=== PATIENT | female | born 1970 | race Caucasian/White ===

== ENCOUNTER 2016-10-30 09:32 | Emergency (ER) | payer OTHER ==
[2016-10-30 09:54] LABS: % IMMATURE GRANULYOCYTES 0.2 % (0.0-1.1); ABSOLUTE IMMATURE GRANULOCYTES 0.01 10^3/uL (0.00-0.10); ADD DIFF? NO; ADD MORPH? NO; ADD SCAN? NO; ATYPICAL LYMPHOCYTE FLAG 40 (0-99); FRAGMENT RBC FLAG 0 (0-99); HEMATOCRIT 44.5 % (38.0-47.0); HEMOGLOBIN 14.6 g/dL (12.6-16.3); LEFT SHIFT FLG 0 (0-99); LIPEMIA HEMOLYSIS FLAG 80 (0-99); MEAN CELL HEMOGLOBIN 29.5 pg (27.9-34.1); MEAN CELL HEMOGLOBIN CONCENTR. 32.8 g/dL (32.4-36.7); MEAN CELL VOLUME 89.9 fL (81.5-99.8); MEAN PLATELET VOLUME 9.8 fL (8.7-11.7); PLATELET CLUMPS FLAG 0 (0-99); PLATELET COUNT 282 10^3/uL (150-400); RED BLOOD CELL COUNT 4.95 10^6/uL (4.18-5.33); RED CELL DISTRIBUTION WIDTH 13.2 % (11.5-15.2)
[2016-10-30 10:17] LABS: ANION GAP 25 mEq/L (8-16); CALCIUM 10.1 mg/dL (8.5-10.4); CARBON DIOXIDE 16 mEq/l (22-31); CHLORIDE 101 mEq/L (97-110); CREATININE 0.7 mg/dL (0.6-1.0); GLOMERULAR FILTRATION RATE > 60; GLUCOSE 118 mg/dL (70-100); POTASSIUM 3.9 mEq/L (3.5-5.2); SODIUM 142 mEq/L (134-144)
[2016-10-30 11:17] VITALS: RESP 14
--- NOTE | 2016-10-30 12:05 | EDPHY ---
H & P Stated Complaint: Seizure Time Seen by Provider: 10/30/16 09:33 HPI/ROS: CHIEF COMPLAINT: Seizure HISTORY OF PRESENT ILLNESS: This is a 46-year-old female with a history of seizure disorder, both trauma caban mal. She reportedly experienced a tonic- clonic seizure while at work today. 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 She reports experiencing an aura prior to the seizure. She has no further recollection. She denies any injury. She would normally not present to the emergency department after seizure but did so because she was feeling diffusely weak and because her coworkers and/or employer apparently encouraged her to do so. She was transported by ambulance. She is compliant with her seizure medications. No recent change in sleep habits or nutrition. She does not use alcohol or drugs. REVIEW OF SYSTEMS: A ten point review of systems was performed and is negative with the exception of the items mentioned in the HPI. 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 Hard of hearing - Social History Smoking Status: Never smoked Alcohol Use: None Drug Use: None Additional Social History: She is employed in a dining [employer]. - Physical Exam Exam: General Appearance: Alert. Vital signs reviewed. Eyes: Pupils equal and round, no conjunctival injection, no discharge. Anicteric. ENT, Mouth: Mucous membranes are moist, no oropharyngeal erythema or edema. No intraoral injury. Neck: No lymphadenopathy, supple. Respiratory: Lungs are clear to auscultation; no wheezes, rales, or rhonchi. Cardiovascular: Regular rate and rhythm; no murmur, rub, or gallop. Gastrointestinal: Abdomen is soft and nontender, no masses or organomegaly, bowel sounds normal. Skin: Warm and dry, no rashes on exposed skin, normal color. Back: Nontender to palpation over the thoracolumbar spine. No CVAT. Extremities: No lower extremity edema, no calf tenderness or swelling. Neurological: Alert and oriented. Moving all four extremities easily and equally. Cranial nerves II through XII are examined and are intact (visual acuity not tested). Strength is 5 over 5 bilaterally with testing of all major motor groups. Sensation is intact to light touch over all 4 extremities. Deep tendon reflexes are 2+ in the biceps and knees bilaterally. Gait is normal. [id number] is performed accurately. Psychiatric: Normal affect. Constitutional: Initial Vital Signs Temperature (C) 36.7 C 10/30/16 09:38 Heart Rate 92 10/30/16 09:38 Respiratory Rate 16 10/30/16 09:38 Blood Pressure 127/80 H 10/30/16 09:38 O2 Sat (%) 94 10/30/16 09:38 O2 Delivery Mode Room Air Allergies/Adverse Reactions: carbamazepine [From Tegretol] Allergy (Verified 04/17/13 12:19) phenobarbital Allergy (Verified 04/17/13 12:19) Home Medications: Medication Instructions Recorded lamOTRIGine [LamICTAL XR] 50 mg PO 04/17/13 FELBATOL 08/21/14 Medical Decision Making ED Course/Re-evaluation: 46-year-old female with a seizure disorder who presents after having a reportedly normal seizure. She was mildly postictal on arrival but cleared shortly thereafter. I have reviewed her CBC and chemistries. Lamictal level has been sent but is not yet available. She has not followed locally. She was observed in the emergency department remained stable with no further seizure activity. She is comfortable returning home and is discharged in improved condition. She will follow up with her neurologist. Differential Diagnosis: Seizure including but not limited to electrolyte abnormality, alcohol withdrawal , medication noncompliance, head injury, and breakthrough seizure. - Data Points Laboratory Results: Laboratory Results 10/30/16 09:35 10/30/16 09:35 10/30/16 10/30/16 10/30/16 09:35 09:35 09:35 WBC 6.59 10^3/uL 10^3/uL (3.80-9.50) RBC 4.95 10^6/uL 10^6/uL (4.18-5.33) Hgb 14.6 g/dL g/dL (12.6-16.3) Hct 44.5 % % (38.0-47.0) MCV 89.9 fL fL (81.5-99.8) MCH 29.5 pg pg (27.9-34.1) MCHC 32.8 g/dL g/dL (32.4-36.7) RDW 13.2 % % (11.5-15.2) Plt Count 282 10^3/uL 10^3/uL (150-400) MPV 9.8 fL fL (8.7-11.7) Neut % (Auto) 32.7 % L % (39.3-74.2) Lymph % (Auto) 55.8 % H % (15.0-45.0) Scurry % (Auto) 7.9 % % (4.5-13.0) Eos % (Auto) 2.3 % % (0.6-7.6) Baso % (Auto) 1.1 % % (0.3-1.7) Nucleat RBC Rel Count 0.0 % % (0.0-0.2) Absolute Neuts (auto) 2.16 10^3/uL 10^3/uL (1.70-6.50) Absolute Lymphs (auto) 3.68 10^3/uL H 10^3/uL (1.00-3.00) Absolute Monos (auto) 0.52 10^3/uL 10^3/uL (0.30-0.80) Absolute Eos (auto) 0.15 10^3/uL 10^3/uL (0.03-0.40) Absolute Basos (auto) 0.07 10^3/uL 10^3/uL (0.02-0.10) Absolute Nucleated RBC 0.00 10^3/uL 10^3/uL (0-0.01) Immature Gran % 0.2 % % (0.0-1.1) Immature Gran # 0.01 10^3/uL 10^3/uL (0.00-0.10) Sodium 142 mEq/L mEq/L (134-144) Potassium 3.9 mEq/L mEq/L (3.5-5.2) Chloride 101 mEq/L mEq/L (97-110) Carbon Dioxide 16 mEq/l L mEq/l (22-31) Anion Gap 25 mEq/L H mEq/L (8-16) BUN 15 mg/dL mg/dL (7-23) Creatinine 0.7 mg/dL mg/dL (0.6-1.0) Estimated GFR > 60 Glucose 118 mg/dL H mg/dL (70-100) Calcium 10.1 mg/dL mg/dL (8.5-10.4) Lamotrigine Pending Departure - Departure Disposition: Home, Routine, Self-Care Clinical Impression: Seizure Condition: Good Instructions: Recurrent Seizures in Adults (ED) Additional Instructions: I sent a Lamictal level but it will not be available for a day or 2. Please that your neurologist know that you had a seizure today. Referrals: NONE *PRIMARY CARE P,. [Primary Care Provider] - As per Instructions
[2016-10-30 12:25] VITALS: BP 123/82; PULSE 78; TEMP 97.7; O2SAT 95
== END 2016-10-30 12:24 | disposition home or self-care (01) ==
LOC: EDUNIT#
DX: G40.909 Epilepsy, unspecified, not intractable, without status epilepticus (principal)
CPT/HCPCS: 80175-90

== ENCOUNTER 2016-11-14 18:43 | Emergency (ER) | payer OTHER ==
--- NOTE | 2016-11-14 18:43 | EDPHY ---
H & P Time Seen by Provider: 11/14/16 18:43 HPI/ROS: CHIEF COMPLAINT: Seizure HISTORY OF PRESENT ILLNESS: Patient arrives by EMS. She called a friend and told her she had a seizure today and the friend called 911. Patient is brought in by EMS. She has a history of epilepsy and was seen in the emergency department on October 30 of this year, Dr. Vazquez chart personally reviewed by myself. She tells me she takes Felbatol and Lamictal. No recent changes in medications. Her friend tells me she looked like she was having an anxiety attack at home. No seizure was independently witnessed by the friend. Of note her previous emergency department visit on October 20 she had labs drawn and her CO2 was low at 16. REVIEW OF SYSTEMS: Eye: no change in vision ENT: Hard of hearing which is chronic for her. No tongue laceration or abrasion Cardiac: no chest pain or syncope Pulmonary: no cough or SOB Abdomen: no vomiting, diarrhea, abdominal pain Musculoskeletal: no back pain Skin: no rash Neuro: no headache Constitutional: no fever : no urinary symptoms A comprehensive 10 point review of systems is otherwise negative aside from elements mentioned in the history of present illness. PAST MEDICAL HISTORY: Seizure disorder and PICAYUNE. She has had seizures since she is 14 years old. Social history: Nonsmoker, no alcohol. General Appearance: Alert and conversant, cooperative. Eyes: No scleral icterus. ENT, Mouth: Normal mucous membranes. No tongue laceration or abrasions. Respiratory: Normal respiratory effort, breath sounds equal, lungs are clear to auscultation. Cardiovascular: Regular rate and rhythm. Gastrointestinal: Abdomen is soft and non tender. Neurological: Alert and oriented x3. Normally conversant. Face symmetric, normal movement and sensation in all extremities. Not tremulous. Skin: Warm and dry, no rashes. Musculoskeletal: No peripheral edema and no joint swelling. Psychiatric: Not agitated. Moderately anxious. Emergency Department course/MDM: A call is placed to [facility]. Colby Matthews 1944, discussed including levels. She recommends no change in medications; followup in the next week. 2021: Reevaluated, clinically stable, recommendations of her neurology practice discussed with the patient. Warned, no driving. Constitutional: Initial Vital Signs Temperature (C) 36.9 C 11/14/16 19:22 Heart Rate 94 11/14/16 19:22 Respiratory Rate 16 11/14/16 19:22 Blood Pressure 136/86 H 11/14/16 19:22 O2 Sat (%) 98 11/14/16 19:22 O2 Delivery Mode Room Air Allergies/Adverse Reactions: carbamazepine [From Tegretol] Allergy (Verified 11/14/16 19:17) phenobarbital Allergy (Verified 11/14/16 19:17) Home Medications: Medication Instructions Recorded lamoTRIgine [LamICTAL XR] 50 mg PO 04/17/13 FELBATOL 08/21/14 Departure - Departure Disposition: Home, Routine, Self-Care Clinical Impression: Seizure disorder Condition: Good Instructions: Epilepsy (ED) Referrals: Patient,NotPresent [Unknown] - 5-7 days, call for appt. (Dr. Jerez, your neurologist at [facility]. Call tomorrow and "ask for an urgent appointment" per the coil connector physician.)
[2016-11-14 19:27] VITALS: RESP 16; TEMP 98.4
[2016-11-14 20:50] VITALS: BP 128/84; PULSE 83; O2SAT 97
== END 2016-11-14 20:48 | disposition home or self-care (01) ==
LOC: EDUNIT#
DX: G40.909 Epilepsy, unspecified, not intractable, without status epilepticus (principal)

== ENCOUNTER 2017-10-19 10:31 | Emergency (ER) | payer OTHER ==
[2017-10-19 10:38] VITALS: BP 143/85; RESP 18
[2017-10-19 10:51] LABS: PLATELET COUNT 277 10^3/uL (150-400)
--- NOTE | 2017-10-19 11:00 | EDPHY ---
H & P Stated Complaint: unwitnessed sz, with hx - Personal History LMP (Females 10-55): 1-7 Days Ago Current Tetanus/Diphtheria Vaccine: No Current Tetanus Diphtheria and Acellular Pertussis (TDAP): No Tetanus Vaccine Date: DOESN'T VACCINATE - Medical/Surgical History Hx Asthma: No Hx Chronic Respiratory Disease: No Hx Diabetes: No Hx Cardiac Disease: No Hx Renal Disease: No Hx Cirrhosis: No Hx Alcoholism: No Hx HIV/AIDS: No Hx Splenectomy or Spleen Trauma: No Other PMH: epilepsy (Grand Mal, Petite mal). Hard of hearing - Social History Smoking Status: Never smoked Time Seen by Provider: 10/19/17 10:36 HPI/ROS: CHIEF COMPLAINT: Seizure HISTORY OF PRESENT ILLNESS: 47-year-old female history of seizure disorder since age 14, followed by neurologist at [facility], compliant with medications, arrives via ambulance after a witnessed seizure while she was at work. Patient describes that although she is compliant with medication she did not sleep well last evening noting life stressors that kept her awake. No alcohol or drug use. While she was EN route to a work this morning she felt pre seizure aura and while at work she was seated, felt seizure , lowered herself to the ground. No head injury. No fall. No postictal symptoms upon EMS arrival. Blood glucose of 191 upon EMS arrival. She currently states that she feels back to her normal self. REVIEW OF SYSTEMS: A ten point review of systems was performed and is negative with the exception of the items mentioned in the HPI PAST MEDICAL/SURGICAL HISTORY: no anticoagulant use, seizure disorder SOCIAL HISTORY: denies alcohol use at time of incident PHYSICAL EXAM 1) GENERAL: Well-developed, well-nourished, alert and oriented. Appears to be in no acute distress. Answering questions appropriately. Smiling. 2) HEAD: Normocephalic, atraumatic 3) HEENT: Pupils equal, round, reactive to light bilaterally. Negative Horners. Nasopharynx, oropharynx, clear. No deformity or angulation of nose. No septal hematoma. No rhinorrhea. No oral trauma. Ears bilaterally with normal tympanic membranes. No laceration no tongue. No hemotympanum. No fluid or blood in the external auditory canal. No raccoon eyes. No Jimenez sign. Teeth are normally aligned with no gross malocclusion, TMJ bilaterally nontender, facial bones nontender including the zygomatic arch, maxilla mandible. 4) NECK: No cervical collar is on. Posterior cervical spine is nontender, no stepoff, no effusion. Full range of motion which does not elicit any midline cervical spine pain, no posterior midline tenderness, no step-off. 5) LUNGS: Clear to auscultation bilaterally, no wheezes, no rhonchi, no retractions. No obvious signs of trauma. No chest wall pain. No flaring, no grunting. Moving symmetrically. No crepitus. 6) HEART: [Regular rate and rhythm, 7) ABDOMEN: No guarding, no rebound, no focal tenderness, no peritoneal signs, no signs of trauma, no ecchymosis 8) MUSCULOSKELETAL: Moving all extremities, no focal areas of tenderness, no obvious trauma. 9) BACK: Patient logrolled while holding inline traction.No midline vertebral tenderness, no fluctuance, no step-off, no obvious trauma, no visual or palpable abnormality. 10) SKIN: No laceration. No abrasion 11) NEURO: Awake, alert, and oriented to person, place and time. Answers questions appropriately. There were no obvious focal neurologic abnormalities. No cerebellar dysfunction. Cranial nerves 2 through to 12 intact. Normal steady gait. Upper and lower extremities bilaterally with strength 5 / 5, reflexes 2+. DIFFERENTIAL DIAGNOSIS: In no particular order including but not limited to seizure, poor sleep hygiene, medication noncompliance, polysubstance abuse ( Benji,Lashae ) Constitutional: Initial Vital Signs Temperature (C) 36.8 C 10/19/17 10:34 Heart Rate 80 10/19/17 10:34 Respiratory Rate 18 10/19/17 10:34 Blood Pressure 143/85 H 10/19/17 10:34 O2 Sat (%) 97 10/19/17 10:34 O2 Delivery Mode Room Air Allergies/Adverse Reactions: carbamazepine [From Tegretol] Allergy (Verified 11/14/16 19:17) phenobarbital Allergy (Verified 11/14/16 19:17) Home Medications: Medication Instructions Recorded lamoTRIgine [LamICTAL XR] 50 mg PO 04/17/13 FELBATOL 08/21/14 Medical Decision Making ED Course/Re-evaluation: 10:45 a.m.: I reviewed the patient's old medical records. She has prior emergency department visits for seizure. She has a longstanding history of seizure disorder since age 14. She notes that she did not sleep well last evening and was compliant with her medications morning. Discussed possibility of breakthrough seizure secondary to poor sleep hygiene recently. She has a nonfocal neurologic exam. Will hold on imaging at this time. Will obtain basic laboratory studies and re-evaluated. She is answering questions appropriate at this time. 12:12 p.m.: Re-evaluation, patient resting quietly and comfortably. She would like to be discharged. She remains with a nonfocal neurologic examination. This time I do not think that further diagnostic studies are indicated. I do not think that CT imaging is indicated. Recommend she go home and get some rest. We discussed sleep hygiene. Care of patient under supervision of secondary supervising physician Dr Jennie Olsen with whom I discussed case ( Lashae Leblanc) Other Provider: The patient was evaluated and managed by the Physician [employer] Operator. I discussed the patient's presentation and course with the midlevel provider with them and agree with the evaluation. My co-signature indicates that I have reviewed this chart and I agree with the findings and plan of care as documented. I am the secondary supervising physician. (Jennie Olsen) - Data Points Laboratory Results: Laboratory Results 10/19/17 10:30 10/19/17 10:30 Departure - Departure Disposition: Home, Routine, Self-Care Clinical Impression: Seizure Condition: Good Instructions: Epilepsy (ED) Additional Instructions: Please take compliant with her medications, please get adequate amounts of rest. Return to the ER if you develop headaches, nausea, vomiting or any other symptoms that concern you. Referrals: Follow-up, with your neurologist at [facility] [Other] - As per Instructions
[2017-10-19 12:28] VITALS: PULSE 70; TEMP 98.8; O2SAT 95
== END 2017-10-19 12:28 | disposition home or self-care (01) ==
LOC: EDUNIT#
DX: G40.909 Epilepsy, unspecified, not intractable, without status epilepticus (principal)
CPT/HCPCS: G0480

== ENCOUNTER 2018-02-20 02:46 | Emergency (ER) | payer OTHER ==
[2018-02-20] MEDS ORDERED: LORazepam 1 MG TAB PO ONE (02:54)
--- NOTE | 2018-02-20 02:55 | EDPHY ---
H & P Stated Complaint: anxiety Time Seen by Provider: 02/20/18 02:54 HPI/ROS: HPI CHIEF COMPLAINT: Can't sleep, anxiety HISTORY OF PRESENT ILLNESS: This is a 47-year-old female, very pleasant, presents emergency room by ambulance for anxiety. Patient states that her anxiety increased around 10:00 p.m. She lives alone. She could not get to sleep. Due the anxiety increasing she called 911. She denies any chest pain or shortness of breath. Main complaint anxiety. Denies SI or HI. She has not take any anxiety medications. She could not sleep so she called 911 arrived here by ambulance. Past Medical History: Seizures, anxiety Past Surgical History: No recent surgery Social History: Denies daily use of drugs alcohol tobacco. Family History: Noncontributory. ROS REVIEW OF SYSTEMS: A comprehensive 10 point review of systems is otherwise negative aside from elements mentioned in the history of present illness. Exam Constitutional nontoxic appearing in no acute distress, triage nursing summary reviewed, vital signs reviewed, awake/alert. Eyes normal conjunctivae and sclera, EOMI, PERRLA. HENT normal inspection, atraumatic, moist mucus membranes, no epistaxis, neck supple/ no meningismus, no raccoon eyes. Respiratory clear to auscultation bilaterally, normal breath sounds, no respiratory distress, no wheezing. Cardiovascular rate normal, regular rhythm, no murmur, no edema, distal pulses normal. Gastrointestinal soft, non-tender, no rebound, no guarding, normal bowel sounds, no distension, no pulsatile mass. Genitourinary no CVA tenderness. Musculoskeletal no midline vertebral tenderness, full range of motion, no calf swelling, no tenderness of extremities, no meningismus, good pulses, neurovascularly intact. Skin pink, warm, & dry, no rash, skin atraumatic. Neurologic awake, alert and oriented x 3, AAOx3, moves all 4 extremities equally, motor intact, sensory intact, CN II-XII intact, normal cerebellar, normal vision, normal speech. Psychiatric anxious Heme/Lymph/Immune no lymphadenopathy. Differential Diagnosis: Includes but is not limited to in a particular order, anxiety attack, panic attack, insomnia, poor sleep due to anxiety Medical Decision Making: Plan for this patient will give a dose 1 mg p.o. Ativan to see if this improves her anxiety can allow her to relax. If she does improve I will allow her to go home. I do recommend close follow-up with her primary care doctor discuss further treatment options about her anxiety and insomnia. Re-evaluation: 0403AM: Patient re-evaluated is feeling better after 1 mg p. O. Ativan. 0506AM: Patient re-evaluated feeling much better after 1 mg p. O. Ativan. Recommend close follow-up with her primary care doctor. Source: Patient, EMS - Personal History LMP (Females 10-55): Unknown Current Tetanus Diphtheria and Acellular Pertussis (TDAP): No Tetanus Vaccine Date: DOESN'T VACCINATE - Medical/Surgical History Hx Asthma: No Hx Chronic Respiratory Disease: No Hx Diabetes: No Hx Cardiac Disease: No Hx Renal Disease: No Hx Cirrhosis: No Hx Alcoholism: No Hx HIV/AIDS: No Hx Splenectomy or Spleen Trauma: No Other PMH: epilepsy (Grand Mal, Petite mal). Hard of hearing - Social History Smoking Status: Never smoked Constitutional: Initial Vital Signs Temperature (C) 36.6 C 02/20/18 02:48 Heart Rate 71 02/20/18 02:48 Respiratory Rate 16 02/20/18 02:48 Blood Pressure 122/92 H 02/20/18 02:48 O2 Sat (%) 98 02/20/18 02:48 O2 Delivery Mode Room Air Allergies/Adverse Reactions: carbamazepine [From Tegretol] Allergy (Verified 02/20/18 02:47) phenobarbital Allergy (Verified 02/20/18 02:47) Home Medications: Medication Instructions Recorded lamoTRIgine [LamICTAL XR] 50 mg PO 04/17/13 FELBATOL 08/21/14 Medical Decision Making - Data Points Medications Given: Discontinued Medications Lorazepam (Ativan) 1 mg PO ONCE ONE Stop: 02/20/18 02:55 Last Admin: 02/20/18 02:58 Dose: 1 mg Departure - Departure Disposition: Home, Routine, Self-Care Clinical Impression: Anxiety Condition: Good Instructions: Anxiety (ED) Additional Instructions: 1. Please follow up with your primary care doctor 2. Return emergency room if you have worsening symptoms questions or concerns. Referrals: Patient,NotPresent [Primary Care Provider] - As per Instructions [facility],. [Clinic] - As per Instructions
[2018-02-20 05:09] VITALS: BP 108/71
== END 2018-02-20 05:11 | disposition home or self-care (01) ==
LOC: EDUNIT#
DX: F41.9 Anxiety disorder, unspecified (principal)

== ENCOUNTER 2018-07-22 15:07 | Emergency (ER) | payer OTHER ==
--- NOTE | 2018-07-22 15:22 | EDPHY ---
H & P Stated Complaint: grand mal seizure at work, fell on L shoulder, L shoulder pain Time Seen by Provider: 07/22/18 15:11 HPI/ROS: CHIEF COMPLAINT: Seizure, left shoulder pain HISTORY OF PRESENT ILLNESS: The patient presents to the ED after witnessed grand mal seizure which occurred at work. She reportedly fell onto the ground striking her left shoulder. The patient presents to the ED with complaints of acute left shoulder pain with attempted movement. She denies any acute headache. She reports that she has a history of chronic seizures. She reports having a petite mal seizure approximately once a week and has about 3-4 grand mal seizures a year. These are typically precipitated by stress which the patient reports has been building over the past several weeks. The patient denies additional traumatic injury. She has been compliant with her regular medications which include sorbitol and Lamictal. REVIEW OF SYSTEMS: A comprehensive 10 point review of systems is otherwise negative aside from elements mentioned in the history of present illness. Source: Patient Exam Limitations: No limitations - Personal History LMP (Females 10-55): Pre Menstrual Current Tetanus Diphtheria and Acellular Pertussis (TDAP): No Tetanus Vaccine Date: DOESN'T VACCINATE - Medical/Surgical History Hx Asthma: No Hx Chronic Respiratory Disease: No Hx Diabetes: No Hx Cardiac Disease: No Hx Renal Disease: No Hx Cirrhosis: No Hx Alcoholism: No Hx HIV/AIDS: No Hx Splenectomy or Spleen Trauma: No Other PMH: epilepsy (Grand Mal, Petite mal). Hard of hearing - Social History Smoking Status: Never smoked - Physical Exam Exam: General Appearance: Alert, no distress Head: Atraumatic Eyes: Pupils equal, round, reactive ENT, Mouth: No hemotympanum, no oral trauma Neck: Nontender, trachea midline Respiratory: No chest wall tender, no subcutaneous air, lungs clear bilaterally Cardiovascular: Regular rate and rhythm Abdomen: Abdomen is soft and nontender, pelvis stable Skin: No lacerations, No abrasion Back: No midline T/L/S pain Extremities: Tenderness to palpation over the left humeral head, no clinical evidence of dislocation Neurological: A&Ox3, normal motor function, normal sensory exam Constitutional: Initial Vital Signs Temperature (C) 36.7 C 07/22/18 15:15 Heart Rate 84 07/22/18 15:15 Respiratory Rate 17 07/22/18 15:15 Blood Pressure 127/81 H 07/22/18 15:15 O2 Sat (%) 88 L 07/22/18 15:15 O2 Delivery Mode Room Air Allergies/Adverse Reactions: carbamazepine [From Tegretol] Allergy (Verified 07/22/18 15:15) phenobarbital Allergy (Verified 07/22/18 15:15) Home Medications: Medication Instructions Recorded lamoTRIgine [LamICTAL XR] 50 mg PO 04/17/13 FELBATOL 08/21/14 Hydrocodone/APAP 5/325 [[place] 1 - 2 each PO Q6 PRN #20 tab 07/22/18 5/325] Medical Decision Making - Diagnostics Imaging Results: Imaging Impressions Shoulder X-Ray 07/22/18 15:16 Impression: Obliquely oriented minimally displaced distal left clavicle fracture. ED Course/Re-evaluation: Patient presents to the ED after a recurrent seizure. The patient has no evidence of a closed head injury. She does complain of some shoulder discomfort. Her x-ray does demonstrate a minimally displaced distal left clavicle fracture. The patient was placed in a sling. She was observed in the emergency department without recurrent seizure activity. The patient does have a follow- up scheduled with her neurologist. The patient will be discharged home with a sling and a prescription for pain medication. She is advised not to drive or participate in dangerous activity. The patient will follow up with our on-call orthopedic surgeon Dr. Newman for recheck of her clavicle fracture which is likely non operative. The patient will be discharged home with customary seizure aftercare instructions and return precautions. The patient is observed to be ambulatory at 4:30 p.m.. No recurrent seizure activity was noted. I did recheck the patient's oxygen saturation personally discharged and is normal. She has no complaints of dyspnea or pleuritic pain. Differential Diagnosis: Differential diagnosis considered includes seizure, status epilepticus, shoulder dislocation, clavicle fracture Departure - Departure Disposition: Home, Routine, Self-Care Clinical Impression: Epilepsy, Clavicle fracture Condition: Good Instructions: Clavicle Fracture (ED), Epilepsy (ED) Additional Instructions: 1. Take Ibuprofen or Motrin 600 mg by mouth three times a day. 2. [place] as needed for severe pain 3. Sling for comfort. Please follow-up with Dr. Newman our on-call orthopedic surgeon for evaluation of your clavicle fracture. 4. Please return to the ED for recurrent seizure, severe headache, numbness, weakness or other concerns. 5. Please follow-up with your current neurologist as scheduled. Referrals: Tashi Newman MD [Medical Doctor] - As per Instructions Prescriptions: Hydrocodone/APAP 5/325 [[place] 5/325] 1 - 2 each PO Q6 PRN #20 tab PRN Reason: for pain
[2018-07-22 16:43] VITALS: BP 101/64
[2018-07-22] MEDS ORDERED: HYDROCODONE/APAP 5/325 TAB ONE (16:53)
[2018-07-22] MEDS ORDERED: HYDROCODONE/APAP 5/325 TAB PO ONE (16:54)
== END 2018-07-22 17:13 | disposition home or self-care (01) ==
LOC: EDUNIT#
DX: S42.002A Fracture of unspecified part of left clavicle, initial encounter for closed fracture (principal); G40.409 Other generalized epilepsy and epileptic syndromes, not intractable, without status epilepticus; W19.XXXA Unspecified fall, initial encounter; Y92.89 Other specified places as the place of occurrence of the external cause; Y93.9 Activity, unspecified; Y99.0 Civilian activity done for income or pay
CPT/HCPCS: A4565

== ENCOUNTER 2018-08-25 20:31 | Emergency (ER) | payer OTHER ==
--- NOTE | 2018-08-25 20:35 | EDPHY ---
H & P Time Seen by Provider: 08/25/18 20:35 HPI/ROS: HPI CHIEF COMPLAINT: "I had a grand mal seizure" HISTORY OF PRESENT ILLNESS: 47-year-old female history of epilepsy, has a history of grand mall seizures, as well as petit mal seizures, she takes Lamictal and Felbatol. She is followed by her neurologist outpatient. She presents to the emergency room after she had a grand mal seizure. She reports that she was on the phone and having a conversation with 1 of her friends who is trying to calm her down, she felt stressed by this conversation and felt pressure buildup in her head and then believe she had a grand mal seizure. She recovered from this. There was no fall or traumatic injury. She denies headache. She states she could feel it coming on so she sat down. No bowel or bladder incontinence no vomiting. After she recovered from this she called 911 as she lives alone and was transported to the emergency room. Upon arrival to the emergency room she denies any complaints. She states she is just tired. Denies headache chest pain or shortness of breath denies fever denies recent illness. States she has been compliant with her medications Past Medical History: Anxiety, epilepsy Past Surgical History: No recent surgery Social History: Denies drugs alcohol tobacco Family History: Noncontributory ROS REVIEW OF SYSTEMS: 10 Systems were reviewed and negative with the exception of the elements mentioned in the history of present illness. Exam Constitutional triage nursing summary reviewed, vital signs reviewed, awake/ alert. Eyes normal conjunctivae and sclera, EOMI, PERRLA. HENT oropharynx evaluated no tongue laceration. normal inspection, atraumatic , moist mucus membranes, no epistaxis, neck supple/ no meningismus, no raccoon eyes. Respiratory clear to auscultation bilaterally, normal breath sounds, no respiratory distress, no wheezing. Cardiovascular rate normal, regular rhythm, no murmur, no edema, distal pulses normal. Gastrointestinal soft, non-tender, no rebound, no guarding, normal bowel sounds, no distension, no pulsatile mass. Genitourinary no CVA tenderness. Musculoskeletal no midline vertebral tenderness, full range of motion, no calf swelling, no tenderness of extremities, no meningismus, good pulses, neurovascularly intact. Skin pink, warm, & dry, no rash, skin atraumatic. Neurologic normal neurological exam on exam awake, alert and oriented x 3, AAOx3, moves all 4 extremities equally, motor intact, sensory intact, CN II-XII intact, normal cerebellar, normal vision, normal speech. Psychiatric normal mood/affect. Heme/Lymph/Immune no lymphadenopathy. Differential Diagnosis: Includes but is not limited to in a particular order epilepsy, seizure, breakthrough seizure, electrolyte disturbance, anxiety, anxiety attack Medical Decision Making: Plan for this patient IV establishment basic blood draw, compliance monitor, check electrolytes, IV fluids monitor for recurrence seizure. Will send Lamictal level however it is send out. Re-evaluation: 2218: Patient re-evaluated this time in no acute distress resting comfortably. Patient has a normal neurological exam. Patient requesting be discharged home. Blood work has been reviewed normal electrolytes. Patient received IV fluids. And continues to do well. There has been no further seizure activity here. I do recommend she follows up with her neurologist. Return precautions discussed. Patient understands return to the emergency room if she has another seizure Source: Patient, EMS - Personal History Tetanus Vaccine Date: DOESN'T VACCINATE - Medical/Surgical History Hx Asthma: No Hx Chronic Respiratory Disease: No Hx Diabetes: No Hx Cardiac Disease: No Hx Renal Disease: No Hx Cirrhosis: No Hx Alcoholism: No Hx HIV/AIDS: No Hx Splenectomy or Spleen Trauma: No Other PMH: epilepsy (Grand Mal, Petite mal). Hard of hearing - Social History Smoking Status: Never smoked Constitutional: Initial Vital Signs Temperature (C) 37.2 C 08/25/18 20:36 Heart Rate 91 08/25/18 20:36 Respiratory Rate 18 08/25/18 20:36 Blood Pressure 143/91 H 08/25/18 20:36 O2 Sat (%) 95 08/25/18 20:36 O2 Delivery Mode Room Air Allergies/Adverse Reactions: carbamazepine [From Tegretol] Allergy (Verified 08/25/18 20:38) phenobarbital Allergy (Verified 08/25/18 20:38) Home Medications: Medication Instructions Recorded lamoTRIgine [LamICTAL XR] 50 mg PO 04/17/13 FELBATOL 08/21/14 Hydrocodone/APAP 5/325 [[place] 1 - 2 each PO Q6 PRN #20 tab 07/22/18 5/325] Medical Decision Making - Data Points Laboratory Results: Laboratory Results 08/25/18 20:20 08/25/18 20:20 08/25/18 08/25/18 08/25/18 20:20 20:20 20:20 WBC 7.82 10^3/uL 10^3/uL (3.80-9.50) RBC 5.32 10^6/uL 10^6/uL (4.18-5.33) Hgb 15.5 g/dL g/dL (12.6-16.3) Hct 48.2 % H % (38.0-47.0) MCV 90.6 fL fL (81.5-99.8) MCH 29.1 pg pg (27.9-34.1) MCHC 32.2 g/dL L g/dL (32.4-36.7) RDW 13.1 % % (11.5-15.2) Plt Count 310 10^3/uL 10^3/uL (150-400) MPV 9.7 fL fL (8.7-11.7) Neut % (Auto) 45.5 % % (39.3-74.2) Lymph % (Auto) 41.4 % % (15.0-45.0) [place] % (Auto) 6.4 % % (4.5-13.0) Eos % (Auto) 5.4 % % (0.6-7.6) Baso % (Auto) 1.2 % % (0.3-1.7) Nucleat RBC Rel Count 0.0 % % (0.0-0.2) Absolute Neuts (auto) 3.56 10^3/uL 10^3/uL (1.70-6.50) Absolute Lymphs (auto) 3.24 10^3/uL H 10^3/uL (1.00-3.00) Absolute Monos (auto) 0.50 10^3/uL 10^3/uL (0.30-0.80) Absolute Eos (auto) 0.42 10^3/uL H 10^3/uL (0.03-0.40) Absolute Basos (auto) 0.09 10^3/uL 10^3/uL (0.02-0.10) Absolute Nucleated RBC 0.00 10^3/uL 10^3/uL (0-0.01) Immature Gran % 0.1 % % (0.0-1.1) Immature Gran # 0.01 10^3/uL 10^3/uL (0.00-0.10) Sodium 139 mEq/L mEq/L (135-145) Potassium 4.1 mEq/L mEq/L (3.5-5.2) Chloride 102 mEq/L mEq/L (97-110) Carbon Dioxide 20 mEq/l L mEq/l (22-31) Anion Gap 17 mEq/L H mEq/L (6-14) BUN 15 mg/dL mg/dL (7-23) Creatinine 0.8 mg/dL mg/dL (0.6-1.0) Estimated GFR > 60 Glucose 96 mg/dL mg/dL (70-100) Calcium 10.3 mg/dL mg/dL (8.5-10.4) Lamotrigine Pending Medications Given: Discontinued Medications Sodium Chloride (Ns) 1,000 mls @ 0 mls/hr IV EDNOW ONE; Wide Open PRN Reason: Protocol Stop: 08/25/18 20:44 Last Admin: 08/25/18 20:47 Dose: 1,000 mls Departure - Departure Disposition: Home, Routine, Self-Care Clinical Impression: Seizure Condition: Good Instructions: Epilepsy (ED) Additional Instructions: 1. Rest and stay well-hydrated 2. Return to the emergency room if worsening symptoms. Referrals: Patient,NotPresent [Primary Care Provider] - As per Instructions John Kiser MD [Medical Doctor] - As per Instructions
[2018-08-25] MEDS ORDERED: NS 1,000 ML IV ONE (20:43)
[2018-08-25 20:50] LABS: PLATELET COUNT 310 10^3/uL (150-400)
[2018-08-25 22:45] VITALS: BP 140/86
== END 2018-08-25 22:45 | disposition home or self-care (01) ==
LOC: EDUNIT#
DX: R56.9 Unspecified convulsions (principal); E86.9 Volume depletion, unspecified
CPT/HCPCS: 80175-90

== ENCOUNTER 2019-01-10 07:44 | Emergency (ER) | payer OTHER | END 2019-01-10 11:49 | disposition home or self-care (01) ==

== ENCOUNTER 2019-01-29 14:48 | Emergency (ER) | payer OTHER | END 2019-01-29 17:15 | disposition home or self-care (01) ==

== ENCOUNTER 2019-02-02 17:30 | Emergency (ER) | payer OTHER ==
--- NOTE | 2019-02-02 18:05 | EDPHY ---
H & P Stated Complaint: TONY, stated she felt like a seizure was coming, no seizure activity Time Seen by Provider: 02/02/19 18:02 HPI/ROS: CHIEF COMPLAINT: Concerned about possibility of seizure HISTORY OF PRESENT ILLNESS: Patient is brought in by ambulance after she felt she was going have the seizure. She reportedly has a history of seizure disorder and is on 2 anti epileptic medications. The patient has had a premonition seizure 3 times this month with any actual seizure activity. She was seen here in the emergency department last week with similar symptoms. The patient is scheduled to see her neurologist at the end of this week. The patient reportedly is being scheduled for a 72 hr inpatient EEG for further characterization of her symptoms. The patient denies any history of fall or trauma. She denies any additional acute complaints. REVIEW OF SYSTEMS: A comprehensive 10 point review of systems is otherwise negative aside from elements mentioned in the history of present illness. Source: Patient Exam Limitations: No limitations - Personal History Current Tetanus/Diphtheria Vaccine: No Tetanus Vaccine Date: DOESN'T VACCINATE - Medical/Surgical History Hx Asthma: No Hx Chronic Respiratory Disease: No Hx Diabetes: No Hx Cardiac Disease: No Hx Renal Disease: No Hx Cirrhosis: No Hx Alcoholism: No Hx HIV/AIDS: No Hx Splenectomy or Spleen Trauma: No Other PMH: epilepsy (Grand Mal, Petite mal). Hard of hearing - Social History Smoking Status: Never smoked - Physical Exam Exam: General Appearance: Alert, no distress Eyes: Pupils equal and round no pallor or injection ENT, Mouth: Mucous membranes moist Respiratory: There are no retractions, lungs are clear to auscultation Cardiovascular: Regular rate and rhythm Gastrointestinal: Abdomen is soft and nontender, no masses, bowel sounds normal Neurological: A&O, normal motor function, normal sensory exam, normal cranial nerves Skin: Warm and dry, no rashes Musculoskeletal: Neck is supple nontender Extremities: symmetrical, full range of motion Constitutional: Initial Vital Signs Temperature (C) 37.0 C 02/02/19 17:36 Heart Rate 70 02/02/19 17:36 Respiratory Rate 16 02/02/19 17:36 Blood Pressure 152/94 H 02/02/19 17:36 O2 Sat (%) 94 02/02/19 17:36 O2 Delivery Mode Room Air Allergies/Adverse Reactions: carbamazepine [From Tegretol] Allergy (Verified 02/02/19 17:36) phenobarbital Allergy (Verified 02/02/19 17:36) Home Medications: Medication Instructions Recorded lamoTRIgine [LamICTAL XR] 50 mg PO 04/17/13 FELBATOL 08/21/14 Hydrocodone/APAP 5/325 [[place] 1 - 2 each PO Q6 PRN #20 tab 07/22/18 5/325] Medical Decision Making ED Course/Re-evaluation: Patient is currently on Lamictal and Febatol for control of her seizures. The patient arrives and is in no acute distress. She is neurologically intact. She has stable vital signs and no meningeal symptoms. I reviewed the results of her prior ED workup. I have told the patient I would be willing to watch her in the ER for the next hour for the possibility of a epileptic event. 7:00 p.m.: The patient has had no seizure activity in the emergency department. She will be discharged home with instructions to follow up with her neurologist as scheduled. She is discharged home with customary aftercare instructions and return precautions. Departure - Departure Disposition: Home, Routine, Self-Care Clinical Impression: Seizure disorder Condition: Good Instructions: Epilepsy (ED) Additional Instructions: 1. Please return to the ED for any concerns. 2. Follow up with your neurologist as scheduled on Sunday. 3. No driving, operating heavy machinery or participate in activities a complete you or someone else at risk in the event of a recurrent seizure. Referrals: Randa Perez MD [Primary Care Provider] - As per Instructions
[2019-02-02 19:07] VITALS: BP 106/63
--- NOTE | 2019-02-03 17:40 | ASMTCMCOM ---
CM Note CM Note Notes: Please see CM Reports on 01/10/19 & 01/29/19 (+ various past ED Provider Reports since 2012) for additional background info Late Entry from 02/02/19 and Follow Up today: Pt presented to the ED yesterday evening for feeling like she was going to have a seizure. CM reviewed pt's past ED visits and CM Reports. CM informed ED RN and Provider that pt is well connected w/[facility] and pt needs to followup with her care team there. CM did not visit with the pt due to CM leaving for the day. Per chart review today, pt was assessed and discharged home to followup outpatient w/her PCP and neurology. Today CM called and spoke w/ pt's PCP Dr Perez's cans vacuum tester, Pema Mosquera (direct: [phone]). Pema states that the pt was last seen on 01/16/19 but still does not have any future appts scheduled with Dr Perez or w/[facility] (and confirmed that pt canceled her 02/07 appt). Pema states she will reach out to the pt today and try to get her in for followup w/Dr Perez and [facility] soon. Pema states that their social media strategist Mariam Longoria continues to reach out to the pt and provide resources/encouragement for followup. Pema states that the pt was recommended to start taking Lexapro but the pt refused due to concerns re:side effects. Pema also said she never received the pt's last 01/29/19 ED visit report via fax. This CM confirmed their fax# [phone] and re-sent pt's 01/29 and yesterday's 02/02/19 ED Reports. CM confirmed that the fax was successfully sent. CM available for further assistance if needed. Date Signed: 02/03/2019 05:40 PM Electronically Signed By:Christel Lott RN
== END 2019-02-02 19:12 | disposition home or self-care (01) ==
LOC: EDUNIT#
DX: G40.909 Epilepsy, unspecified, not intractable, without status epilepticus (principal)